=== PATIENT | female | born 1980 | race Caucasian/White ===

== ENCOUNTER 2025-02-21 08:06 | Emergency (ER) | payer OTHER, SELFPAY ==
[2025-02-21 08:09] VITALS: BP 97/54; PULSE 66; RESP 16; TEMP 36.7; O2SAT 99; BMI 53.3
[2025-02-21 08:19] VITALS: BP 112/61
--- NOTE | 2025-02-21 08:36 | ED.VIS.LOWEX ---
HPI History of Present Illness HPI Narrative: Patient presents with right knee pain that began after a fall last night. Patient dates she fell while she was taking her dog outside. Patient states her right knee hyperflexed and she fell onto her knee and lower leg. Patient describes her pain as dull and aching. Patient states it is sharp whenever she bends it. Patient states nothing makes it better. Patient denies any paresthesias or weakness. Patient denies any head injury or loss of consciousness. Patient denies any other injuries. Chief Complaint: Fall Informant: patient Occured/Mechanism Mechanism/Context: Yes fall Onset/Context/Timing Onset: Yesterday Context: Sudden Onset Timing: Continuous Quality of Pain: Sharp (With flexion), Dull and Aching Location: Right knee Worsened by: Flexion Relieved by: Nothing Associated Symptoms Associated Symptoms: Negative for Parasthesia, Weakness or Loss of Funtion [facility] Medical History Depression Insomnia Hypothyroid Anxiety Borderline personality disorder Hypertension Home Medications ?Medication ?Instructions ?Recorded ?Last Taken ?Type amlodipine 10 mg tablet 10 mg PO DAILY 02/21/25 Unknown History fluoxetine .ROUTE 02/21/25 Unknown History levothyroxine 75 mcg capsule 75 mcg PO DAILY 02/21/25 02/20/25 History multivitamin (Daily Multi-Vitamin 1 tab PO DAILY 02/21/25 Unknown History tablet) trazodone .ROUTE 02/21/25 Unknown History Allergy/AdvReac Type Severity Reaction Status Date / Time No Known Allergies Allergy Verified 02/21/25 08:13 Surgical History Hx of bladder repair surgery Hx of eye surgery Social History Smoking Status: Current every day smoker tobacco type: cigarettes ROS ROS ED Constitutional Constitutional ED: Denies chills or fever(s) Eyes Eyes: Denies blurry vision or change in vision ENT ENT ED: Reports rhinorrhea; Denies sore throat Cardiovascular Cardiovascular: Denies chest pain or palpitations Respiratory/Chest Respiratory/Chest: Reports cough; Denies dyspnea Gastrointestinal Gastrointestinal: Denies nausea or vomiting Genitourinary Genitourinary ED: Denies dysuria or hematuria Musculoskeletal Musculoskeletal: Denies back pain or neck pain Integumentary Denies abscess or rash Neurologic Neurologic: Denies headache(s) or weakness Allergic/Immunologic Allergic/Immunologic ED: Denies mouth swelling or urticaria EXAM Physical Exam Const Vital Signs: 02/21/25 08:09 02/21/25 08:19 Temperature 98.1 F Temperature Source Oral Pulse Rate 66 Respiratory Rate 16 Blood Pressure 97/54 L 112/61 Blood Pressure Mean 68 78 Pulse Ox 99 Oxygen Delivery Method Room Air Positive well nourished and well developed General Appearance ED: well developed and NAD HEENT Reports moist mucous membranes Neck full ROM and supple Resp normal respiratory effort and clear to auscultation bilaterally Cardio regular rate and regular rhythm Extremity Extremity Narrative: There is tenderness over the medial aspect of the right knee. There is no effusion noted. Range of motion was limited in all motions of the right knee secondary to pain. Strength is 5/5 bilaterally in the lower extremities. Extensor mechanism is intact. There is some mild laxity with valgus testing. There is no laxity with varus testing. Artis's test was negative. Sensation was intact to light touch bilaterally in the lower extremities. Pedal pulses are equal bilaterally. Neuro oriented x3, CN's II-XII intact bilaterally, moves all extremities and no sensory deficits noted Sensorium / Orientation: alert Motor Exam: strength 5/5 throughout Psych mental status grossly normal MDM MDM MDM Narrative Medical decision making narrative: Differential diagnosis includes fracture, sprain, and meniscus tear. X-rays of the right knee will be obtained to assess for occult fracture. Radiography Diagnostic Testing: Clinical Impression(s) from Imaging Studies Knee X-Ray 02/21/25 08:59 IMPRESSION: 1. No visible acute displaced fracture. 2. Additional description as above. Reading Location: [id number] Treatment and Re-Evaluation Narrative: Patient was given a dose of Naprosyn. Discharge Plan Triage Chief Complaint: Fall ED Provider: Johnson Mullen Dx/Rx/DC Orders Clinical Impression: Right knee sprain, Fall Instructions: ED Knee Sprain Ligaments Prescriptions: No Action levothyroxine 75 mcg capsule 75 mcg PO DAILY fluoxetine .ROUTE amlodipine 10 mg tablet 10 mg PO DAILY trazodone .ROUTE multivitamin [Daily Multi-Vitamin] Tablet 1 tab PO DAILY Primary Care Provider: [facility] [Primary Care Provider, None] - 5-7 Days Print Language: Serbian Disposition Disposition: Home, Self Care
--- NOTE | 2025-02-21 08:59 | RAD_ITS ---
PROCEDURE: KNEE 4 OR MORE VIEWS 02/21/2025 REASON FOR EXAM: INJURY/PAIN TECHNIQUE: Procedure Code: RADKN Modality: DX Procedure: KNEE 4 OR MORE VIEWS Laterality: Right COMPARISON: None. FINDINGS: Fracture/dislocation: None visible. Joint space(s): Mild patellofemoral joint space loss with tiny osteophytes.. Soft tissues: Unremarkable. Foreign bodies: None visible. Bone mineralization: Unremarkable. Other: None. RAD/Knee 4 or More Views IMPRESSION: 1. No visible acute displaced fracture. 2. Additional description as above. Reading Location: [id number]
[2025-02-21] MEDS: HYDROcodone Bitartrate/Apap 5/325 Tablet PO (10:44)
== END 2025-02-21 11:06 | disposition home or self-care (01) ==
PROVIDERS: Emergency Provider Emergency Medicine; Visit Provider Emergency Medicine
DX: S83.91XA Sprain of unspecified site of right knee, initial encounter (principal); W19.XXXA Unspecified fall, initial encounter; I10 Essential (primary) hypertension; E03.9 Hypothyroidism, unspecified; Z79.899 Other long term (current) drug therapy; Z79.890 Hormone replacement therapy; F17.210 Nicotine dependence, cigarettes, uncomplicated
CPT/HCPCS: 73564; 99284